=== PATIENT | male | born 1940 | race Caucasian/White ===

== ENCOUNTER → 2016-08-28 | Outpatient (CLI) | payer OTHER ==
[~2016-08-28] MED LIST: IOPAMIDOL (ISOVUE-300) 100 ML BTL ONE
[2016-08-28 11:54] LABS: CREATININE 1.3 mg/dL (0.7-1.3)
== END ==
LOC: FIMAGING 10:51
PROVIDERS: ATTEND Orthopaedic Surgery
DX: R93.8 Abnormal findings on diagnostic imaging of other specified body structures (principal); Z85.830 Personal history of malignant neoplasm of bone; K80.20 Calculus of gallbladder without cholecystitis without obstruction; I70.0 Atherosclerosis of aorta; I25.10 Atherosclerotic heart disease of native coronary artery without angina pectoris; I51.7 Cardiomegaly
CPT/HCPCS: 71260; 74177; Q9967